=== PATIENT | female | born 1935 | race Caucasian/White ===

== ENCOUNTER 2016-07-03 14:06 | Outpatient (CLI) | payer MEDICARE, BC ==
--- NOTE | 2016-07-03 17:23 | RAD ---
CHEST TWO VIEWS 07/03/16 Comparison is made with several prior studies dating back to 11/18/13. The heart size is stable and shows no prominent cardiomegaly. There is no congestive change or pleur al effusion. The lungs are clear with no acute infiltrate present. Regarding the subcentimeter nodul ar density in the right upper lobe, it has not changed at all in the last three years. IMPRESSION: No acute thoracic finding. POS: HOME
== END 2016-07-03 14:07 | disposition home or self-care (01) ==
LOC: BURRAD 14:06
PROVIDERS: ATTEND Family Medicine
DX: R91.1 Solitary pulmonary nodule (principal)
CPT/HCPCS: 71020

== ENCOUNTER 2016-07-04 10:49 | Outpatient (CLI) | payer MEDICARE, BC ==
[2016-07-04 12:00] LABS: #Basophils 0.1 thou/uL (0.0-0.2); #Eosinphils 0.2 thou/uL (0.0-0.7); #Lymphocytes 1.6 thou/uL (1.20-3.40); #Neutrophils 9.1 thou/uL (1.40-6.50); %Basophils 1.1 % (0.0-1.0); %Eosinophils 1.6 % (0.0-10.0); %Lymphocytes 13.5 % (21.0-51.0); %Neutrophils 75.8 % (42.0-75.0); Mean Corpuscular Hemoglobin 32.9 pg (27.0-31.0); Mean Corpuscular Volume 99.7 fl (81.0-99.0); Platelet Count 237 thou/uL (130-400); RBC Distribution Width 12.9 % (11.5-14.5); Red Blood Cell (RBC) Count 4.26 mill/uL (4.20-5.40)
[2016-07-04 12:21] LABS: ALT (SGPT) 13 U/L (0-55); AST (SGOT) 16 U/L (5-34); Albumin 4.5 g/dL (3.4-4.8); Alkaline Phosphatase 61 U/L (40-150); Anion Gap 17 mmol/L (10-20); BUN (Urea Nitrogen) 33 mg/dL (9.8-20.1); Bilirubin, Total 0.6 mg/dL (0.2-1.2); Calc. Creatinine Clearance 0 mL/min (70-130); Calcium 10.3 mg/dL (7.8-10.44); Carbon Dioxide 27 mmol/L (23-31); Cardiac Risk 5.1 (Less than 4.5); Chloride 104 mmol/L (98-107); Cholesterol 275 mg/dL (< 200 Desired); Estimated GFR-MDRD 28; Globulin 2.5 g/dL (2.4-3.5); Glucose 89 mg/dL (83-110); HDL Cholesterol 54 mg/dL (>60 Neg Risk); LDL Cholesterol, Calculated 192 mg/dL; Potassium 4.4 mmol/L (3.5-5.1); Sodium 144 mmol/L (136-145); Triglycerides 146 mg/dL (Less than 150)
== END 2016-07-04 10:50 | disposition home or self-care (01) ==
LOC: HPCALD 10:49
PROVIDERS: ATTEND Family Medicine
DX: Z13.6 Encounter for screening for cardiovascular disorders (principal); I10 Essential (primary) hypertension; R53.83 Other fatigue
CPT/HCPCS: 36415; 80053; 80061; 84443; 85025

== ENCOUNTER 2016-11-05 11:52 | Outpatient (CLI) | payer MEDICARE, BC ==
[2016-11-05 12:38] LABS: Anion Gap 14 mmol/L (10-20); BUN (Urea Nitrogen) 27 mg/dL (9.8-20.1); Calc. Creatinine Clearance 0 mL/min (70-130); Calcium 9.9 mg/dL (7.8-10.44); Carbon Dioxide 27 mmol/L (23-31); Chloride 104 mmol/L (98-107); Estimated GFR-MDRD 32; Glucose 88 mg/dL (83-110); Potassium 4.5 mmol/L (3.5-5.1); Sodium 140 mmol/L (136-145)
[2016-11-05 18:19] LABS: Protein, Urine Random Quant Less than 10 mg/dL
== END 2016-11-05 11:53 | disposition home or self-care (01) ==
LOC: BURLAB 11:52
PROVIDERS: ATTEND Internal Medicine Nephrology
DX: I12.9 Hypertensive chronic kidney disease with stage 1 through stage 4 chronic kidney disease, or unspecified chronic kidney disease (principal); N18.4 Chronic kidney disease, stage 4 (severe); E55.9 Vitamin D deficiency, unspecified
CPT/HCPCS: 80048; 82570; 83970; 84156

== ENCOUNTER 2017-10-17 10:51 | Outpatient (CLI) | payer MEDICARE, BC ==
--- NOTE | 2017-10-17 18:13 | RAD ---
CHEST TWO VIEWS: 10/17/17 Comparison is made with numerous prior studies dating back to 11/18/13. 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 The heart size remains normal. There are no congestive fi ndings or pleural effusions. Median sternotomy sutures are seen from prior surgery and arteriosclerot ic change is present in the aortic arch. Some lingular scarring is suggested. A vague nodular area in the right upper lobe remains unchanged over the four year period. IMPRESSION: No acute thoracic finding. POS: HOME
== END 2017-10-17 10:52 | disposition home or self-care (01) ==
LOC: BURRAD 10:51
PROVIDERS: ATTEND Family Medicine
DX: R91.1 Solitary pulmonary nodule (principal)
CPT/HCPCS: 71046

== ENCOUNTER 2018-01-08 09:16 | Outpatient (CLI) | payer MEDICARE, BC ==
--- NOTE | 2018-01-08 11:07 | ULT ---
SONOGRAM ABDOMEN COMPLETE: History: Upper abdomen pain. FINDINGS: Gallbladder is surgically absent. Common duct 0.8 mm. Liver unremarkable without focal mass or intrah epatic biliary dilation. No free fluid. The spleen, kidneys, and visualized portions of the abdominal aorta, IVC, and pancreas are unremarkable. IMPRESSION: Status post cholecystectomy. No significant abnormalities are demonstrated. POS: [facility]
== END 2018-01-08 09:17 | disposition home or self-care (01) ==
LOC: BURULT 09:16
PROVIDERS: ATTEND Family Medicine
DX: R10.84 Generalized abdominal pain (principal); Z90.49 Acquired absence of other specified parts of digestive tract
CPT/HCPCS: 76700

== ENCOUNTER 2018-01-19 11:54 | Emergency (ER) | payer MEDICARE, BC ==
[2018-01-19] MEDS ORDERED: Lidocaine 1% 20 ML MDV ONE (12:08)
[2018-01-19] MEDS ORDERED: cefTRIAXone\\ROCEPHIN 1 GM VIAL ONE (12:56)
[2018-01-19] MEDS ORDERED: Triple Antibiotic Oint 1 GM Packet ONE (12:59)
== END 2018-01-19 13:30 | disposition home or self-care (01) ==
LOC: BURERS 11:54
DX: S81.851A Open bite, right lower leg, initial encounter (principal); S81.811A Laceration without foreign body, right lower leg, initial encounter; I25.10 Atherosclerotic heart disease of native coronary artery without angina pectoris; I10 Essential (primary) hypertension; Z87.891 Personal history of nicotine dependence; W55.01XA Bitten by cat, initial encounter
CPT/HCPCS: 12004; 96372; J0696; J2001

== ENCOUNTER 2019-05-15 12:31 | Outpatient (CLI) | payer MEDICARE, BC ==
--- NOTE | 2019-05-15 16:42 | RAD ---
RIGHT KNEE TWO VIEWS: 05/15/19 No fracture was seen. Minimal bony spurring in seen medially. A joint effusion is probably present. C alcification is seen in the popliteal region. IMPRESSION: Joint effusion but no acute bony finding. POS: HOME
== END 2019-05-15 12:32 | disposition home or self-care (01) ==
LOC: BURRAD 12:31
PROVIDERS: ATTEND Nurse Practitioner Family
DX: M25.561 Pain in right knee (principal); M25.461 Effusion, right knee

== ENCOUNTER 2020-04-05 09:24 | Emergency (ER) | payer MEDICARE, BC ==
[2020-04-05] MEDS ORDERED: Ketorolac Tromethamine 30 MG/ML VIAL ONE (10:00)
[2020-04-05 10:04] LABS: #Basophils 0.1 thou/uL (0.0-0.2); #Lymphocytes 0.7 thou/uL (1.20-3.40); #Monocytes 0.7 thou/uL (0.11-0.59); #Neutrophils 9.6 thou/uL (1.40-6.50); %Basophils 0.7 % (0.0-1.0); %Eosinophils 0.1 % (0.0-10.0); %Lymphocytes 6.1 % (21.0-51.0); %Monocytes 6.4 % (0.0-10.0); %Neutrophils 86.8 % (42.0-75.0); Hemoglobin 14.4 g/dL (12.0-16.0); Mean Corpuscular HGB CONC 31.8 g/dL (32.0-36.0); Mean Corpuscular Hemoglobin 31.9 pg (27.0-31.0); Mean Platelet Volume 8.9 fL (7.4-10.4); Platelet Count 288 thou/uL (130-400); RBC Distribution Width 13.4 % (11.5-14.5); Red Blood Cell (RBC) Count 4.53 mill/uL (4.20-5.40)
[2020-04-05 10:19] LABS: ALT (SGPT) 10 U/L (8-55); AST (SGOT) 13 U/L (5-34); Albumin 4.2 g/dL (3.4-4.8); Alkaline Phosphatase 59 U/L (40-110); Anion Gap 19 mmol/L (10-20); BUN (Urea Nitrogen) 20 mg/dL (9.8-20.1); Bilirubin, Total 1.3 mg/dL (0.2-1.2); Calc. Creatinine Clearance 0 mL/min (70-130); Calcium 10.1 mg/dL (7.8-10.44); Carbon Dioxide 23 mmol/L (23-31); Chloride 101 mmol/L (98-107); Globulin 3.1 g/dL (2.4-3.5); Glucose 127 mg/dL (83-110); Lipase 9 U/L (8-78); Potassium 3.7 mmol/L (3.5-5.1); Protein, Total 7.3 g/dL (6.0-8.3); Sodium 139 mmol/L (136-145)
[2020-04-05] MEDS ORDERED: metroNIDAZOLE 500 MG/100 ML BAG ONE (10:45)
[2020-04-05] MEDS ORDERED: Cefepime 2 GM VIAL ONE (10:45)
--- NOTE | 2020-04-05 14:27 | CT ---
CT ABDOMEN AND PELVIS WITHOUT CONTRAST: 04/05/[address] was ordered without oral or IV contrast. Comparison is made with a 01/21/13 study. The most pertinent findings are in the CT of the pelvis. There is inflammatory reaction around the ba se of the cecum in the right lower quadrant. What I interpret to be the appendix is enlarged and angy ures about 1.5 cm in diameter and has slightly enhancing concepcion. Additionally, there is free fluid in the cul-de-sac, more on the right than the left, and a few tiny locules of free air are seen just kayli eath the anterior abdominal wall in the midline and probably a couple in the right lower quadrant as well. The findings suggest the possibility of acute appendicitis with perforation. The bowel in the r egion also could have pathology in it and the appendiceal enlargement is secondary. Pure acute append icitis is unusual in this age group, so the possibility of other pathology should be considered. Whil e there is abundant gas in the right and transverse colon, this is felt to be reactive in nature. The re are no findings strongly suggestive of overt obstruction. The urinary bladder has somewhat thick w alls uniformly, but it is also not very full. The lung bases are clear except for some minimal dependent atelectasis. The liver and spleen were unr emarkable for a non-contrast study. There is a question of an 8 to 9 mm lucency at the junction of th e neck and body of the pancreas of uncertain significance. I do not see it on the 2013 scan. The kidn eys show no mass, hydronephrosis, or signs of renal calculi. A 1.7 cm lucency in the right adrenal gl and is no different than 2013 and is most likely a small adenoma. There is a new rounded area in the left adrenal gland measuring about 1.7 cm in size with CT numbers in the 9 to 10 range. While not pre sent before, an adenoma seems likely. IMPRESSION: 1. Inflammatory changes in the right lower quadrant around the cecal base with a few tiny locule s of free air anteriorly and free fluid in the pelvis. This, along with some dilation of the appendix (1.5 cm) and thickening of its concepcion, raises the question of acute appendicitis. There is a chance t hat there could have been a pathologic event nearby and it is secondarily inflamed. As appendicitis i s somewhat unusual in the age group, associated pathology is certainly possible. 2. Probable left adrenal adenoma of no current concern. Right adrenal adenoma unchanged since . 3. Small 8 to 9 mm lucency at the junction of the neck and body of the pancreas of uncertain sig nificance, not present on a 2013 scan. Initial findings discussed with Dr. Ang at 1039 on 04/05/20. POS: HOME
== END 2020-04-05 12:07 | disposition short-term general hospital (02) ==
LOC: BURERS 09:24
DX: K35.80 Unspecified acute appendicitis (principal); K66.8 Other specified disorders of peritoneum; I25.10 Atherosclerotic heart disease of native coronary artery without angina pectoris; E78.5 Hyperlipidemia, unspecified; I10 Essential (primary) hypertension; Z87.891 Personal history of nicotine dependence; Z79.899 Other long term (current) drug therapy; Z79.82 Long term (current) use of aspirin
CPT/HCPCS: 74176; 80053; 83690; 85025; 93005; 96365; 96375; J0692; J1885

== ENCOUNTER 2021-07-11 15:22 | Outpatient (CLI) | payer MEDICARE, BC | END 2021-07-11 15:23 | disposition home or self-care (01) | LOC: BURRAD 15:22 | PROVIDERS: ATTEND Family Medicine | DX: K59.03 Drug induced constipation (principal) | CPT/HCPCS: 74018 ==

== ENCOUNTER 2021-09-28 11:38 | Emergency (ER) | payer MEDICARE, BC ==
[2021-09-28] MEDS ORDERED: Iopamidol 370 76% 100 ML VIAL FS ONE (11:39)
[2021-09-28 12:15] LABS: #Basophils 0.1 thou/uL (0.0-0.2); #Eosinphils 0.1 thou/uL (0.0-0.7); #Lymphocytes 0.6 thou/uL (1.20-3.40); #Monocytes 0.7 thou/uL (0.11-0.59); #Neutrophils 6.1 thou/uL (1.40-6.50); %Basophils 1.9 % (0.0-1.0); %Eosinophils 0.9 % (0.0-10.0); %Lymphocytes 8.1 % (21.0-51.0); %Monocytes 8.6 % (0.0-10.0); %Neutrophils 80.5 % (42.0-75.0); Hemoglobin 11.8 g/dL (12.0-16.0); Mean Corpuscular HGB CONC 30.8 g/dL (32.0-36.0); Mean Corpuscular Hemoglobin 31.6 pg (27.0-31.0); Mean Platelet Volume 6.7 fL (7.4-10.4); Platelet Count 305 thou/uL (130-400); RBC Distribution Width 13.6 % (11.5-14.5); Red Blood Cell (RBC) Count 3.73 mill/uL (4.20-5.40); White Blood Cell (WBC) Count 7.6 thou/uL (4.8-10.8)
[2021-09-28 12:32] LABS: ALT (SGPT) 9 U/L (8-55); AST (SGOT) 15 U/L (5-34); Albumin 3.9 g/dL (3.4-4.8); Alkaline Phosphatase 55 U/L (40-110); Anion Gap 15 mmol/L (10-20); BUN (Urea Nitrogen) 22 mg/dL (9.8-20.1); Bilirubin, Total 0.5 mg/dL (0.2-1.2); Calc. Creatinine Clearance 0 mL/min (70-130); Calcium 9.1 mg/dL (7.8-10.44); Carbon Dioxide 23 mmol/L (23-31); Chloride 105 mmol/L (98-107); Globulin 2.6 g/dL (2.4-3.5); Glucose 157 mg/dL (83-110); Lipase 29 U/L (8-78); Potassium 4.1 mmol/L (3.5-5.1); Protein, Total 6.5 g/dL (5.8-8.1); Sodium 139 mmol/L (136-145)
[2021-09-28 13:52] LABS: Bilirubin Negative (Negative); Blood, Urine Negative (Negative); Clarity Clear (Clear); Glucose, Urine (Dipstick) Negative (Negative); Ketone, Urine Negative (Negative); Leukocyte Negative (Negative); Nitrite Negative (Negative); Protein, Urine (Dipstick) Negative (Neg-Trace); Specific Gravity, Urine 1.015 (1.005-1.030); Urobilinogen 0.2 mg/dL (Less than 2)
== END 2021-09-28 14:27 | disposition home or self-care (01) ==
LOC: BURERS 11:38
DX: I71.4 Abdominal aortic aneurysm, without rupture (principal); R19.5 Other fecal abnormalities; I25.10 Atherosclerotic heart disease of native coronary artery without angina pectoris; E78.5 Hyperlipidemia, unspecified; I10 Essential (primary) hypertension; Z87.891 Personal history of nicotine dependence; Z79.899 Other long term (current) drug therapy; Z79.82 Long term (current) use of aspirin
CPT/HCPCS: 74177; 80053; 81003; 83690; 85025; 94760; 96360; Q9967

== ENCOUNTER 2021-10-16 11:21 | Emergency (ER) | payer MEDICARE, BC ==
[2021-10-16 12:14] LABS: #Basophils 0.1 thou/uL (0.0-0.2); #Eosinphils 0.1 thou/uL (0.0-0.7); #Lymphocytes 0.9 thou/uL (1.20-3.40); #Monocytes 0.5 thou/uL (0.11-0.59); #Neutrophils 7.5 thou/uL (1.40-6.50); %Basophils 1.1 % (0.0-1.0); %Eosinophils 1.2 % (0.0-10.0); %Lymphocytes 9.6 % (21.0-51.0); %Monocytes 5.8 % (0.0-10.0); %Neutrophils 82.3 % (42.0-75.0); ALT (SGPT) 11 U/L (8-55); AST (SGOT) 15 U/L (5-34); Albumin 3.9 g/dL (3.4-4.8); Alkaline Phosphatase 58 U/L (40-110); Anion Gap 16 mmol/L (10-20); BUN (Urea Nitrogen) 21 mg/dL (9.8-20.1); Bilirubin, Total 0.9 mg/dL (0.2-1.2); Calc. Creatinine Clearance 0 mL/min (70-130); Calcium 9.4 mg/dL (7.8-10.44); Carbon Dioxide 29 mmol/L (23-31); Chloride 99 mmol/L (98-107); Estimated GFR 33; Globulin 2.8 g/dL (2.4-3.5); Glucose 158 mg/dL (83-110); Hemoglobin 13.8 g/dL (12.0-16.0); Lipase 25 U/L (8-78); Magnesium 1.7 mg/dL (1.6-2.6); Mean Corpuscular HGB CONC 31.3 g/dL (32.0-36.0); Mean Corpuscular Hemoglobin 32.1 pg (27.0-31.0); Mean Platelet Volume 7.3 fL (7.4-10.4); Platelet Count 280 thou/uL (130-400); Potassium 3.8 mmol/L (3.5-5.1); Protein, Total 6.7 g/dL (5.8-8.1); Red Blood Cell (RBC) Count 4.31 mill/uL (4.20-5.40); Sodium 140 mmol/L (136-145); White Blood Cell (WBC) Count 9.1 thou/uL (4.8-10.8)
[2021-10-16] MEDS ORDERED: Fentanyl 100 MCG/2 ML VIAL ONE (12:28)
[2021-10-16] MEDS ORDERED: Aspirin Chewable 81 MG TAB ONE (12:29)
[2021-10-16 12:35] LABS: CKMB 2.7 ng/mL (0-6.6)
[2021-10-16] MEDS ORDERED: Nitroglycerin 2% Ointment 1 INCH/1 GM Packet ONE (12:47)
[2021-10-16] MEDS ORDERED: Furosemide 40 MG/4 ML VIAL ONE (12:47)
[2021-10-16 13:38] LABS: Bilirubin Negative (Negative); Blood, Urine Negative (Negative); Clarity Clear (Clear); Glucose, Urine (Dipstick) Negative (Negative); Ketone, Urine Negative (Negative); Leukocyte Negative (Negative); Nitrite Negative (Negative); Protein, Urine (Dipstick) Negative (Neg-Trace); Urobilinogen 0.2 mg/dL (Less than 2)
== END 2021-10-16 16:30 | disposition short-term general hospital (02) ==
LOC: BURERS 11:21
DX: I11.0 Hypertensive heart disease with heart failure (principal); I50.9 Heart failure, unspecified; J90 Pleural effusion, not elsewhere classified; I44.7 Left bundle-branch block, unspecified; N17.9 Acute kidney failure, unspecified; R77.8 Other specified abnormalities of plasma proteins; I25.10 Atherosclerotic heart disease of native coronary artery without angina pectoris; E78.5 Hyperlipidemia, unspecified; Z87.891 Personal history of nicotine dependence; Z79.82 Long term (current) use of aspirin; Z79.899 Other long term (current) drug therapy
CPT/HCPCS: 71045; 80053; 81003; 82553; 83690; 83735; 83880; 84484; 85025; 85379; 93005; 96374; 96375; J1940; J3010